=== PATIENT | female | born 1990 | race African-American/Black ===

== ENCOUNTER 2016-12-10 07:06 | Emergency (ER) | payer MEDICAID ==
[2016-12-10 07:14] VITALS: BP 117/81
== END 2016-12-10 07:57 | disposition home or self-care (01) ==
LOC: ED 07:06
DX: H00.016 Hordeolum externum left eye, unspecified eyelid (principal)

== ENCOUNTER 2017-01-29 09:34 | Emergency (ER) | payer MEDICAID ==
[~2017-01-29] VITALS: Ht 177.8 cm; Wt 90.3 kg
[2017-01-29 09:42] VITALS: BP 128/82
== END 2017-01-29 11:20 | disposition home or self-care (01) ==
LOC: ED 09:34
DX: H02.401 Unspecified ptosis of right eyelid (principal)

== ENCOUNTER 2017-03-10 08:55 | Emergency (ER) | payer MEDICAID ==
[2017-03-10 09:25] VITALS: BP 120/64
== END 2017-03-10 09:25 | disposition home or self-care (01) ==
LOC: ED 08:55
DX: H10.32 Unspecified acute conjunctivitis, left eye (principal)

== ENCOUNTER 2017-04-03 08:36 | Emergency (ER) | payer MEDICAID ==
[2017-04-03 10:18] LABS: CALCIUM 8.4 mg/dL (8.5-10.1); CARBON DIOXIDE 26.5 mmol/L (21-32); CHLORIDE SERUM 107 mmol/L (98-107); GFR1 > 60 mL/min; GLUCOSE SERUM 101 mg/dL (74-106); POTASSIUM SERUM 3.7 mmol/L (3.5-5.1); SODIUM SERUM 141 mmol/L (136-145)
[2017-04-03 10:21] LABS: BASOPHIL % 0.1 % (0-2); PLATELET COUNT 179 x10^3mcL (130-400)
[2017-04-03 10:22] LABS: ALBUMIN 3.5 g/dL (3.4-5.0); ALKALINE PHOSPHATASE 48 U/L (46-116); ALT/SGPT 32 U/L (14-59); AST/SGOT 26 U/L (15-37); BILIRUBIN TOTAL 0.52 mg/dL (0.20-1.00); LIPASE 131 IU/L (73-393)
[2017-04-03 11:26] VITALS: BP 107/66
== END 2017-04-03 11:26 | disposition home or self-care (01) ==
LOC: ED 08:36
PROVIDERS: Emergency Medicine
DX: R10.9 Unspecified abdominal pain (principal); R11.2 Nausea with vomiting, unspecified; R19.7 Diarrhea, unspecified
CPT/HCPCS: J1885; J2405; J7030; J7042

== ENCOUNTER → 2019-07-16 | Outpatient (CLI) | payer MEDICAID ==
[~2019-07-16] MED LIST: BACDS PO; MOT800 PO
[2019-07-16 11:12] LABS: microscopic required? NO
[2019-07-16 11:29] LABS: UA SPECIFIC GRAVITY 1.025 (1.005-1.035); urine erythrocyte NEGATIVE (NEGATIVE)
== END | disposition home or self-care (01) ==
LOC: US 09:51
PROC: BW4GZZZ Ultrasonography of Pelvic Region (ICD-10-PCS; principal; 2019-07-16)
PROC: BW40ZZZ Ultrasonography of Abdomen (ICD-10-PCS; 2019-07-16)
PROC: BU4CZZZ Ultrasonography of Uterus and Ovaries (ICD-10-PCS; 2019-07-16)
DX: N39.0 Urinary tract infection, site not specified (principal)
CPT/HCPCS: 87491; 87591

== ENCOUNTER 2019-10-08 13:24 | Emergency (ER) | payer OTHER ==
[~2019-10-08] VITALS: Ht 177.8 cm; Wt 97.5 kg
[2019-10-08 13:56] VITALS: Ht 177.8 cm; Wt 97.5 kg
[2019-10-08 14:47] VITALS: BP 136/85
== END 2019-10-08 14:47 | disposition home or self-care (01) ==
LOC: ED 13:24
DX: K64.4 Residual hemorrhoidal skin tags (principal)

== ENCOUNTER 2019-10-10 15:38 | Emergency (ER) | payer OTHER ==
[~2019-10-10] VITALS: Ht 177.8 cm; Wt 92.5 kg
[2019-10-10 15:44] VITALS: Ht 177.8 cm; Wt 92.5 kg
[2019-10-10 16:53] VITALS: BP 128/96
== END 2019-10-10 16:53 | disposition home or self-care (01) ==
LOC: ED 15:38
DX: K62.89 Other specified diseases of anus and rectum (principal); K64.8 Other hemorrhoids
CPT/HCPCS: J1885